=== PATIENT | female | born 1970 | race Caucasian/White ===

== ENCOUNTER 2022-01-30 14:07 | Emergency (ER) | payer OTHER ==
[~2022-01-30] VITALS: Ht 155 cm; Wt 57.6 kg
[2022-01-30] MEDS ORDERED: CEPHALEXIN 250 MG (KEFLEX) CAP PO SCH (15:00)
[2022-01-30] MEDS ORDERED: LIDOCAINE 1% INJ 10 ML VIAL INJ ONE (15:00)
[2022-01-30] MEDS ORDERED: TETANUS,DIPTH,PERTUSS P/F (BOOSTRIX) 0.5 ML VIAL IM ONE (15:00)
[2022-01-30] MEDS ORDERED: CEPH500T PO ×2 (15:02→15:19)
--- NOTE | 2022-01-30 15:03 | ED Lower Extremity ---
General Chief Complaint: Lower Extremity Stated Complaint: RIGHT FOOT INJ / PAIN Nursing Triage Note: PT TO FT 1 VIA WC W C/O RIGHT FOOT INJ AT APPROX 1315 WHEN SHE WAS AT [facility] AND A METAL SIGN FELL ON HER FOOT. PT REPORTS METAL SIGN PUNCTURED FOOT. PT A&OX4. Source: patient Exam Limitations: no limitations History of Present Illness Date Seen by Provider: Jan 30, 2022 Time Seen by Provider: 14:59 Initial Comments To ER with a puncture wound to the dorsal right foot. She was at [facility] in flip-flops when one of the metal [place] signs tipped over and punctured the dorsal aspect of her foot between the second and third metatarsals. Tetanus not up-to-date. States it was bleeding very heavily at [facility]. Onset: just prior to arrival Severity: moderate Pain/Injury Location: right foot Method of Injury: direct blow Modifying Factors: Worse With Movement Allergies and Home Medications Allergies Coded Allergies: Penicillins (Verified Allergy, Unknown, 01/30/22) morphine (Verified Allergy, Unknown, 01/30/22) Uncoded Allergies: iv contrast (Allergy, Unknown, 01/30/22) Patient Home Medication List Home Medication List Reviewed: Yes Cephalexin (Cephalexin) 500 Mg Tablet, 500 MG PO TID Prescribed by: SOFIA CORRAL on 01/30/22 1502 Review of Systems Constitutional: see HPI EENTM: see HPI Respiratory: no symptoms reported Cardiovascular: no symptoms reported Genitourinary: no symptoms reported Musculoskeletal: see HPI Skin: no symptoms reported Psychiatric/Neurological: No Symptoms Reported Past Wncyhum-Dbbcan-Vtggfy Hx Patient Social History Tobacco Use?: No Use of E-Cig and/or Vaping dev: No Substance use?: No Alcohol Use?: No Immunizations Up To Date Influenza Vaccine Up-to-Date: No; Not Current First/Initial COVID19 Vaccinat: 2020 Second COVID19 Vaccination Luis: 2020 Third COVID19 Vaccination Date: 2021 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 oz. kg; 23.00 BMI Method: General Appearance: WD/WN, no apparent distress HEENT: PERRL/EOMI, normal ENT inspection Neck: non-tender, full range of motion Respiratory: no respiratory distress, no accessory muscle use Hips: bilateral hip non-tender, bilateral hip normal inspection, bilateral hip normal range of motion Legs: bilateral leg non-tender, bilateral leg normal inspection, bilateral leg normal range of motion Knees: bilateral knee non-tender, bilateral knee normal inspection, bilateral knee normal range of motion Ankles: bilateral ankle non-tender, bilateral ankle normal inspection, bilateral ankle normal range of motion Feet: right foot other (4 to 5 mm puncture wound to the dorsal aspect of the right foot over the distal third metatarsal. No active bleeding at this time.) Neurologic/Psychiatric: alert, normal mood/affect, oriented x 3 Skin: normal color, warm/dry Procedures/Interventions Wound Location: Lower Extremities Wound Length (cm): 0.5 Wound's Depth, Shape: linear, sub Q Wound Explored: clean Suture: Prolene Suture Size: 4-0 Number of Sutures: 1 Layer Closure?: 1 Number Deep Layer Sutures: 0 Progress/Results/Core Measures Results/Orders My Orders Orders - SOFIA CORRAL APRN Foot, Right, 3 View (01/30/22 14:55) Dipht,Pertuss(Acell),Tet Adult (Boostrix (01/30/22 15:00) Cephalexin Capsule (Keflex Capsule) (01/30/22 15:00) Lidocaine 1% Inj 10 Ml (Xylocaine 1% Inj (01/30/22 15:00) Medications Given in ED Current Medications Medications Dose Ordered Sig/Mack Route Start Time Stop Time Status Last Admin Dose Admin Diphtheria/ Tetanus/Acell Pertussis 0.5 ml ONCE ONCE IM 01/30/22 15:00 01/30/22 15:01 DC 01/30/22 15:07 0.5 ML Lidocaine HCl 10 ml ONCE ONCE INJ 01/30/22 15:00 01/30/22 15:01 DC 01/30/22 15:08 10 ML Vital Signs/I&O 01/30/22 14:09 Temp 36.8 Pulse 102 Resp 22 B/P (MAP) 132/94 (107) Pulse Ox 97 O2 Delivery Room Air Blood Pressure Mean: 107 Departure Communication (Admissions) Wound anesthetized with 0.5 mL of 1% lidocaine without epinephrine wound then irrigated with 60 mL of saline. Closed for the sake of hemostasis with 1 simple interrupted suture size 4-0 Prolene. Impression Primary Impression: Puncture wound of foot Disposition: HOME, SELF-CARE Condition: Stable Departure-Patient Inst. Decision time for Depature: 15:01 Referrals: NO,LOCAL PHYSICIAN (PCP) Primary Care Physician Patient Instructions: Wound Care (DC) Add. Discharge Instructions: Stitch out in 7 to 10 days. Antibiotics as directed. Return to ER for any concerns. You can allow water to run over this washing gently tonight with soap and water. Do not soak it in water such as bathtub hot tub or swimming pool until the stitches have been removed. All discharge instructions reviewed with patient and/or family. Voiced understanding. Scripts Cephalexin (Cephalexin) 500 Mg Tablet 500 MG PO TID, #14 TAB . Prov: SOFIA CORRAL APRN 01/30/22 SOFIA CORRAL APRN Jan 30, 2022 15:03
--- NOTE | 2022-01-30 15:13 | Diagnostic Imaging Report ---
EXAMINATION: Right foot radiograph EXAM DATE: 01/30/2022 3:09 PM COMPARISON: None available. HISTORY: pain TECHNIQUE: 3 views FINDINGS: There is no acute fracture, dislocation, or destructive osseous process. The joint spaces are normal. The soft tissues are normal. IMPRESSION: 1. No acute osseous abnormality. Dictated by: Dictated on workstation # [id number]
[2022-01-30 15:27] VITALS: BP 128/88
== END 2022-01-30 15:27 | disposition home or self-care (01) ==
LOC: EDUNIT# 14:07 → ER 14:09
DX: S91.331A Puncture wound without foreign body, right foot, initial encounter (principal); Z23 Encounter for immunization; W20.8XXA Other cause of strike by thrown, projected or falling object, initial encounter; Y92.512 Supermarket, store or market as the place of occurrence of the external cause
CPT/HCPCS: 12001; 73630; 90715